=== PATIENT | female | born 1965 | race Caucasian/White ===

== ENCOUNTER 2023-12-17 21:59 | Inpatient (IN) | payer MEDICAID, OTHER ==
[~2023-12-17] VITALS: Ht 157.5 cm; Wt 89.0 kg
[2023-12-17 22:11] VITALS: PULSE 77; RESP 16; O2SAT 98
[2023-12-17] MEDS: MORPHINE SULFATE 4 MG/ML SYR/VIAL IV ONE (22:31)
[2023-12-17] MEDS: ONDANSETRON HCL 4 MG/2 ML VIAL IV ONE (22:31)
[2023-12-17] MEDS: LORazepam 2MG/ML-1ML VIAL IV ONE (22:31)
[2023-12-17 22:45] LABS: Basophils # (auto) 0.1 10 ^3/uL (0-0.2); Basophils % (auto) 0.5 % (0.0-2.0); Eosinophils # (auto) 0.2 10 ^3/uL (0-0.8); Eosinophils % (auto) 1.1 % (0.0-7.0); Hematocrit 44.9 % (36.0-46.0); Hemoglobin 14.7 g/dL (12.2-16.2); Lymphocytes % (auto) 6.9 % (10.0-50.0); Mean Corpuscular Hemoglobin 32.2 pg (28.0-32.0); Mean Corpuscular Hgb Conc. 32.7 g/dL (32.0-36.0); Mean Corpuscular Volume 98.5 fL (80.0-100.0); Monocytes # (auto) 0.6 10 ^3/uL (0-1.3); Monocytes % (auto) 4.2 % (0.0-12.0); Neutrophils # (auto) 12.1 10 ^3/uL (1.6-8.6); Neutrophils % (auto) 87.3 % (37.0-80.0); Platelet Count (auto) 249 10^3/uL (140-450); Red Blood Cells 4.56 10^6/uL (4.0-5.20); Red Cell Distribution Width 13.9 % (11.8-14.3); White Blood Cell 13.9 10^3/uL (4.4-10.8)
[2023-12-17 23:00] LABS: Alanine Aminotransferase 16 U/L (7-40); Albumin 4.1 g/dL (3.2-4.8); Alkaline Phosphatase 102 U/L (46-116); Anion Gap 5 (5-15); Aspartate Aminotransferase 15 U/L (13-40); BUN/Creatinine Ratio 8.1 (10.0-20.0); Bilirubin, Total 0.6 mg/dL (0.2-1.0); Blood Urea Nitrogen 10 mg/dL (9-23); Calcium 9.3 mg/dL (8.7-10.4); Carbon Dioxide 25 mmol/L (20-30); Chloride 108 mmol/L (98-107); Glucose 95 mg/dL (74-106); Potassium 3.6 mmol/L (3.5-5.1); Sodium 138 mmol/L (136-145)
[2023-12-17 23:01] LABS: Total Protein 6.4 g/dL (5.7-8.2)
[2023-12-17 23:06] LABS: Lactic Acid w/Reflex 2.2 mmol/L (0.4-2.0)
[2023-12-17] MEDS: SODIUM CHLORIDE 0.9% 500 ML IV ONE (23:24)
[2023-12-18] VITALS (10 sets, daily range): BP systolic 90–110; BP diastolic 33–67; PULSE 77–91; RESP 15–20; TEMP 98.1–99.3; O2SAT 93–95
[2023-12-18] MEDS: LORazepam 2MG/ML-1ML VIAL IV ONE (00:30)
[2023-12-18] MEDS: MORPHINE SULFATE 4 MG/ML SYR/VIAL IV ONE (01:45)
[2023-12-18] MEDS ORDERED: ONDANSETRON HCL 4 MG/2 ML VIAL IV PRN (02:45)
[2023-12-18] MEDS ORDERED: DOCUSATE SOD 100 MG CAP PO PRN (02:45)
[2023-12-18] MEDS: SODIUM CHLORIDE 0.9% 500 ML IV ONE (03:00)
[2023-12-18] MEDS: cefTRIAXone 2GM/50ML D5W 50 ML IV SCH (03:42)
[2023-12-18] MEDS: TAMSULOSIN HYDROCHLORIDE 0.4 MG CAP PO SCH (03:44)
[2023-12-18] MEDS: LACTATED RINGER'S 1,000 ML IV ONE (03:59)
[2023-12-18 05:33] LABS: Lactic Acid w/Reflex 2.2 mmol/L (0.4-2.0)
[2023-12-18] MEDS: SODIUM CHLOR 0.9% PF (SALINE LOCK) 10ML VIAL/SYR IV SCH (06:05)
[2023-12-18] MEDS: PANTOPRAZOLE 40 MG/10 ML VIAL INJ IV SCH (10:03)
[2023-12-18 10:28] LABS: Urine Bacteria FEW /hpf (None Seen); Urine Blood 3+ /uL (Negative); Urine Clarity Turbid (Clear); Urine Color Light-Orange (Yellow); Urine Mucus FEW (None Seen); Urine Protein, UAD 1+ (Negative); Urine Specific Gravity 1.018 (1.001-1.035); Urine Urobilinogen Normal (Negative); Urine WBC 162 /hpf (0 - 5); Urine pH 5.5 (5.0-9.0)
[2023-12-18 10:33] LABS: Amphetamine Screen, Urine Pos (NEGATIVE); Barbiturate Scree,Urine Neg (NEGATIVE); Benzodiazephine Screen, Urine Neg (NEGATIVE); Cocaine Screen, Urine Neg (NEGATIVE)
[2023-12-18 10:34] LABS: Cannabinoid Screen, Urine Neg (NEGATIVE); Opiate Scree,Urine Pos (NEGATIVE); Phencyclidine Screen, Urine Neg (NEGATIVE)
[2023-12-18] MEDS: HYDROmorphone HCL 2 MG/ML VL/or syr IV PRN (11:38)
[2023-12-18] MEDS: HYDROcodone-ACET 5/325MG TAB PO PRN (16:09)
[2023-12-19] VITALS (7 sets, daily range): BP systolic 97–118; BP diastolic 49–65; PULSE 78–88; RESP 16–18; TEMP 98.2–98.7; O2SAT 93–100
[2023-12-19] MEDS: ACETAMINOPHEN 325 MG TAB PO PRN (00:52)
[2023-12-19 07:38] LABS: Basophils # (auto) 0 10 ^3/uL (0-0.2); Basophils % (auto) 0.2 % (0.0-2.0); Eosinophils # (auto) 0.1 10 ^3/uL (0-0.8); Eosinophils % (auto) 1.2 % (0.0-7.0); Hematocrit 36.3 % (36.0-46.0); Hemoglobin 12.3 g/dL (12.2-16.2); Lymphocytes # (auto) 0.9 10 ^3/uL (0.4-5.4); Lymphocytes % (auto) 10.5 % (10.0-50.0); Mean Corpuscular Hemoglobin 32.5 pg (28.0-32.0); Mean Corpuscular Hgb Conc. 33.8 g/dL (32.0-36.0); Mean Corpuscular Volume 96.1 fL (80.0-100.0); Monocytes # (auto) 0.7 10 ^3/uL (0-1.3); Monocytes % (auto) 7.4 % (0.0-12.0); Neutrophils # (auto) 7.2 10 ^3/uL (1.6-8.6); Neutrophils % (auto) 80.7 % (37.0-80.0); Nucleated Red Blood Cells % 0.1 %; Platelet Count (auto) 193 10^3/uL (140-450); Red Blood Cells 3.78 10^6/uL (4.0-5.20); Red Cell Distribution Width 13.4 % (11.8-14.3); White Blood Cell 8.9 10^3/uL (4.4-10.8)
[2023-12-19 07:48] LABS: Anion Gap 3 (5-15); Carbon Dioxide 29 mmol/L (20-30); Chloride 107 mmol/L (98-107); Potassium 3.8 mmol/L (3.5-5.1); Sodium 139 mmol/L (136-145)
[2023-12-19 07:49] LABS: Calcium 9.1 mg/dL (8.7-10.4)
[2023-12-19 07:54] LABS: BUN/Creatinine Ratio 11.5 (10.0-20.0); Blood Urea Nitrogen 13 mg/dL (9-23); Glucose 110 mg/dL (74-106)
[2023-12-19] MEDS: IBUPROFEN 600 MG TAB PO ONE (09:45)
[2023-12-19] MEDS: SODIUM CHLORIDE 0.9% 1,000 ML IV SCH ×2 (10:30→17:38)
[2023-12-19] MEDS ORDERED: IBUPROFEN 400 MG TAB PO PRN (13:15)
[2023-12-19] MEDS: CEFEPIME 1GM/ 50ML 50 ML IV SCH (14:13)
[2023-12-19] MEDS ORDERED: GABA-1308 PO (14:41)
[2023-12-19] MEDS ORDERED: POTA-36 PO (14:41)
[2023-12-19] MEDS ORDERED: BUPR75TA96 PO (14:41)
[2023-12-19] MEDS ORDERED: FURO40TA4 PO (14:41)
[2023-12-19] MEDS ORDERED: CARV6.2551 PO (14:41)
[2023-12-19] MEDS ORDERED: SACU1TAB PO (14:41)
[2023-12-19] MEDS ORDERED: CHOL20007 OR (14:41)
[2023-12-19] MEDS ORDERED: SPIR25TA8 PO (14:41)
[2023-12-19] MEDS ORDERED: ATOR40TA52 PO (14:41)
[2023-12-19] MEDS ORDERED: OMEP-434 PO (14:41)
[2023-12-19] MEDS ORDERED: TRAZ1TAB12 PO (14:41)
[2023-12-19] MEDS ORDERED: HYDROcodone-ACET 5/325MG TAB PO PRN (15:45)
[2023-12-19] MEDS ORDERED: buPROPion HCL 75 MG TAB PO SCH (19:00)
[2023-12-19] MEDS ORDERED: CARVEDILOL 3.125 MG TAB PO SCH (22:00)
[2023-12-19] MEDS ORDERED: ATORVASTATIN 20 MG TAB PO SCH (22:00)
[2023-12-19] MEDS ORDERED: GABAPENTIN 100 MG CAP PO SCH (22:00)
[2023-12-20] MEDS ORDERED: PANTOPRAZOLE 40 MG TAB PO SCH (06:00)
== END 2023-12-19 18:25 | disposition left against medical advice (07) | DRG 720 ==
LOC: ER 21:59 → EDBD 21:59 → OVERFLOW 12-18 02:47 → WEST WING 12-18 13:54
PROVIDERS: ADMIT Internal Medicine; ATTEND Internal Medicine
DX: A41.9 Sepsis, unspecified organism (principal); I11.0 Hypertensive heart disease with heart failure; I50.9 Heart failure, unspecified; N13.6 Pyonephrosis; F17.210 Nicotine dependence, cigarettes, uncomplicated; Z53.29 Procedure and treatment not carried out because of patient's decision for other reasons; F32.9 Major depressive disorder, single episode, unspecified; G62.9 Polyneuropathy, unspecified; Z83.3 Family history of diabetes mellitus
CPT/HCPCS: 36415; 74018; 74176; 80048; 80053; 80307; 81001; 83605; 83690; 83880; 84484; 85025; 87040; 87077; 87086; 87186; 93005; 93306; G0378; J2405; J2470